=== PATIENT | female | born 1955 | race Caucasian/White ===

== ENCOUNTER → 2019-05-02 | Outpatient (CLI) | payer MEDICARE ==
[~2019-05-02] MED LIST: ATOR10TA69 PO; BUPR-47 PO; ESOM40CA PO; ESTR2TAB PO; IPRA4AER IH; LEVO75TA10 PO; RIVA20TA PO; ROPI1TAB11 PO; VIT B12 PO; VIT D2 PO
== END | disposition home or self-care (01) ==
LOC: RAH 15:14
PROVIDERS: ATTEND Orthopaedic Surgery
DX: M47.22 Other spondylosis with radiculopathy, cervical region (principal); M48.02 Spinal stenosis, cervical region
CPT/HCPCS: 72141

== ENCOUNTER 2023-01-07 09:00 | Inpatient (IN) | payer MEDICARE ==
[~2023-01-07] VITALS: Ht 162.6 cm; Wt 78.7 kg
[~2023-01-07 09:00] MED LIST changes: -BUPR-47 PO; -ESOM40CA PO; -ESTR2TAB PO; +ESTR2TAB25 PO; -IPRA4AER IH; -RIVA20TA PO; -ROPI1TAB11 PO; -VIT B12 PO; -VIT D2 PO
[2023-01-07 10:09] VITALS: BP 119/63
[2023-01-07 10:27] LABS: BASOPHILS % (AUTO) 0.5 % (0.0-5.0); HEMATOCRIT 35.3 % (36-48); LYMPHOCYTES % (AUTO) 19.6 % (21.0-51.0); MEAN CORPUSCULAR HEMOGLOBIN 26.1 pg (27.0-33.0); MEAN CORPUSCULAR HGB CONC 30.6 g/dL (32.0-36.0); MEAN CORPUSCULAR VOLUME 85.3 fL (79-99); NEUTROPHILS % (AUTO) 70.7 % (40.0-77.0); PLATELET COUNT (AUTO) 270 K/uL (130-400); RED BLOOD CELL COUNT(AUTO) 4.14 MIL/uL (4.00-5.50); RED CELL DISTRIBUTION WIDTH 16.7 % (11.0-15.5); WHITE BLOOD COUNT (AUTO) 6.1 K/uL (4.8-10.8)
[2023-01-07 10:39] LABS: INR 0.96 (0.85-1.15); PROTHROMBIN TIME 10.5 SEC (9.6-11.6)
[2023-01-07 10:40] LABS: POTASSIUM 4.4 mmol/L (3.5-5.1)
[2023-01-07 10:41] LABS: PARTIAL THROMBOPLASTIN TIME 29.9 SEC (26.3-35.5)
[2023-01-07] MEDS ORDERED: VITAMIN B12 PO (11:23)
[2023-01-07] MEDS ORDERED: VITAMIN D3 PO (11:23)
[2023-01-07] MEDS ORDERED: OMEP20TA20 PO (11:23)
[2023-01-07] MEDS ORDERED: FLUO20TA29 PO (11:23)
[2023-01-07] MEDS ORDERED: APIX5TAB PO (11:23)
[2023-01-07] MEDS ORDERED: ROPI2TAB7 PO (11:23)
[2023-01-12 15:38] VITALS: BP 134/66
[2023-01-13] VITALS (25 sets, daily range): BP systolic 97–130; BP diastolic 48–98
[2023-01-13] MEDS ORDERED: CEFAZOLIN SODIUM 2 GM VIAL ONE (06:55)
[2023-01-13] MEDS ORDERED: LACTATED RINGERS 1000ML 1,000 ML IV ONE (06:55)
[2023-01-13] MEDS ORDERED: ROPIVACAINE 0.5% 5MG/ML 30ML IJ ONE (08:34)
[2023-01-13] MEDS ORDERED: TRANEXAMIC ACID 1000MG/10ML ONE (10:06)
[2023-01-13] MEDS ORDERED: LIDOCAINE PF 100MG/5ML (2%) SYRINGE 5ML ONE (10:26)
[2023-01-13] MEDS ORDERED: ROCURONIUM 10MG/1ML SYR 10 MG/ML ML ONE (10:27)
[2023-01-13] MEDS ORDERED: GLYCOPYRROLATE 1 MG/5 ML SYRINGE ONE (10:27)
[2023-01-13] MEDS ORDERED: FENTANYL CITRATE PF 50 MCG/1 ML 2ML VIAL ONE (10:27)
[2023-01-13] MEDS ORDERED: PROPOFOL 10 MG/ML 20ML VIAL IV ONE (10:27)
[2023-01-13] MEDS ORDERED: MIDAZOLAM HCL 1 MG/ML 2ML VIAL ONE (10:27)
[2023-01-13] MEDS ORDERED: CEFAZOLIN SODIUM 2 GM VIAL IVPB ONE (11:29)
[2023-01-13] MEDS ORDERED: HYDROCODONE/ACETAMINOPHEN 10/325 MG TAB PO PRN (11:30)
[2023-01-13] MEDS ORDERED: KCL 20 MEQ ERTAB PO PRN (11:30)
[2023-01-13] MEDS ORDERED: LIDOCAINE HCL-MPF 1% 2ML VIAL IV PRN (11:30)
[2023-01-13] MEDS: 0.9%NACL 1000ML 1,000 ML IV SCH ×2 (11:30→21:30)
[2023-01-13] MEDS ORDERED: POTASSIUM CHLORIDE 20MEQ/100ML 100 ML IV PRN (11:30)
[2023-01-13] MEDS ORDERED: POTASSIUM CHLORIDE 10% ELIXIR 20 MEQ/15 ML UDCUP PO PRN (11:30)
[2023-01-13] MEDS ORDERED: FE FUMARATE/FA/MV, MIN COMB#15 1 TAB PO PRN (11:30)
[2023-01-13] MEDS ORDERED: ONDANSETRON 4MG INJ IVP PRN (11:30)
[2023-01-13] MEDS ORDERED: TRANEXAMIC ACID 1000MG/10ML IV ONE (12:07)
[2023-01-13] MEDS ORDERED: ONDANSETRON 4MG INJ ONE (12:17)
[2023-01-13] MEDS ORDERED: EPHEDRINE SULFATE 50 MG/ML AMPULE ONE (12:46)
[2023-01-13] MEDS: ROPINIROLE HCL 1 MG TABLET PO SCH ×2 (14:00→20:36)
[2023-01-13] MEDS ORDERED: SUGAMMADEX SODIUM 200 MG/2 ML VIAL IV ONE (14:29)
[2023-01-13] MEDS: CEFAZOLIN SODIUM 1 GM VIAL IVPB SCH ×2 (16:30→23:49)
[2023-01-13] MEDS: ACETAMINOPHEN 1,000 MG/100 ML VIAL IV SCH ×3 (16:56→23:30)
[2023-01-13] MEDS: ASPIRIN 81 MG EC TAB PO SCH ×2 (20:36→20:39)
[2023-01-13] MEDS: HYDROCODONE/ACETAMINOPHEN 5/325 MG TAB PO PRN (20:41)
[2023-01-13] MEDS ORDERED: ESTRADIOL 0.5 MG TABLET PO SCH (21:00)
[2023-01-13] MEDS ORDERED: FLUOXETINE HCL 20 MG CAPSULE PO SCH (21:00)
[2023-01-14] MEDS: MORPHINE 4 MG SYG IVP PRN ×3 (00:43→11:53)
[2023-01-14 04:33] VITALS: BP 118/70
[2023-01-14 04:37] LABS: HEMATOCRIT 31.7 % (36-48); MEAN CORPUSCULAR HEMOGLOBIN 25.9 pg (27.0-33.0); MEAN CORPUSCULAR HGB CONC 30.9 g/dL (32.0-36.0); MEAN CORPUSCULAR VOLUME 83.6 fL (79-99); RED BLOOD CELL COUNT(AUTO) 3.79 MIL/uL (4.00-5.50); RED CELL DISTRIBUTION WIDTH 17.5 % (11.0-15.5); WHITE BLOOD COUNT (AUTO) 5.2 K/uL (4.8-10.8)
[2023-01-14 05:07] LABS: CREATININE 0.9 mg/dL (0.5-1.5); POTASSIUM 3.9 mmol/L (3.5-5.1)
[2023-01-14] MEDS: 0.9%NACL 1000ML 1,000 ML IV SCH (07:30)
[2023-01-14 08:00] VITALS: BP 106/74
[2023-01-14] MEDS ORDERED: POLYETHYLENE GLYCOL 3350 17 GM POWD.PACK PO SCH (09:00)
[2023-01-14] MEDS ORDERED: PANTOPRAZOLE 40 MG TAB DR PO SCH (09:00)
[2023-01-14] MEDS ORDERED: LEVOTHYROXINE 75 MCG TABLET PO SCH (09:00)
[2023-01-14] MEDS: ASPIRIN 81 MG EC TAB PO SCH (09:28)
[2023-01-14] MEDS: ROPINIROLE HCL 1 MG TABLET PO SCH ×2 (09:28→15:08)
[2023-01-14 12:00] VITALS: BP 119/72
[2023-01-14 16:00] VITALS: BP 106/64
[2023-01-14] MEDS: HYDROCODONE/ACETAMINOPHEN 5/325 MG TAB PO PRN (17:55)
[2023-01-16] MEDS ORDERED: BISACODYL 10 MG SUPP.RECT RC PRN (11:30)
== END 2023-01-14 18:35 | disposition home or self-care (01) | DRG 483 ==
LOC: DAHIP 01-13 06:46 → 4AH 01-13 16:20
PROVIDERS: ADMIT Orthopaedic Surgery; ATTEND Orthopaedic Surgery
PROC: 0RRK0JZ Replacement of Left Shoulder Joint with Synthetic Substitute, Open Approach (ICD-10-PCS; 2023-01-13)
PROC: 0RPK08Z Removal of Spacer from Left Shoulder Joint, Open Approach (ICD-10-PCS; principal; 2023-01-13 10:45)
DX: T84.59XA Infection and inflammatory reaction due to other internal joint prosthesis, initial encounter (principal); X58.XXXA Exposure to other specified factors, initial encounter; Z20.822 Contact with and (suspected) exposure to COVID-19
CPT/HCPCS: 36415; 73030; 80048; 85025; 85027; 85610; 85730; 87070; 87076; 87101; 87206; 87426; 97039; G0378; J0690; J2001; J2250; J2270; J2405; J2704; J2795; J3010; J3490; J7120

== ENCOUNTER 2023-06-16 08:30 | Inpatient (IN) | payer OTHER ==
[2023-06-16] VITALS (29 sets, daily range): BP systolic 98–149; BP diastolic 43–88; PULSE 76–99; RESP 11–59; O2SAT 100
[~2023-06-16] VITALS: Ht 167.6 cm; Wt 65.5 kg
[~2023-06-16 08:30] MED LIST changes: +APIX5TAB PO; +FLUO20TA29 PO; +OMEP20TA20 PO; +ROPI2TAB53 PO; +VITAMIN B12 PO; +VITAMIN D3 PO
[2023-06-16 09:38] LABS: BASOPHILS % (AUTO) 0.4 % (0.0-5.0); EOSINOPHILS % (AUTO) 3.5 % (0.0-8.0); HEMATOCRIT 29.5 % (36-48); LYMPHOCYTES % (AUTO) 23.2 % (21.0-51.0); MEAN CORPUSCULAR HEMOGLOBIN 26.9 pg (27.0-33.0); MEAN CORPUSCULAR HGB CONC 31.2 g/dL (32.0-36.0); MEAN CORPUSCULAR VOLUME 86.3 fL (79-99); NEUTROPHILS % (AUTO) 61.5 % (40.0-77.0); PLATELET COUNT (AUTO) 349 K/uL (130-400); RED BLOOD CELL COUNT(AUTO) 3.42 MIL/uL (4.00-5.50); RED CELL DISTRIBUTION WIDTH 16.7 % (11.0-15.5); WHITE BLOOD COUNT (AUTO) 4.5 K/uL (4.8-10.8)
[2023-06-16] MEDS ORDERED: GABA-529 PO (09:41)
[2023-06-16] MEDS ORDERED: LACTATED RINGERS 1000ML 1,000 ML IV ONE (09:42)
[2023-06-16] MEDS ORDERED: CEFAZOLIN SODIUM 2 GM VIAL ONE (09:42)
[2023-06-16 09:44] LABS: CREATININE 0.9 mg/dL (0.5-1.5); POTASSIUM 4.4 mmol/L (3.5-5.1)
[2023-06-16] MEDS ORDERED: ERTA1VIA3 IV (09:53)
[2023-06-16] MEDS ORDERED: PROPOFOL 10 MG/ML 20ML VIAL IV ONE (10:55)
[2023-06-16] MEDS ORDERED: LIDOCAINE PF 100MG/5ML (2%) SYRINGE 5ML ONE (10:55)
[2023-06-16] MEDS ORDERED: FENTANYL CITRATE PF 50 MCG/1 ML 2ML VIAL ONE (10:56)
[2023-06-16] MEDS ORDERED: ROCURONIUM 10MG/1ML SYR 10 MG/ML ML ONE (10:56)
[2023-06-16] MEDS ORDERED: MIDAZOLAM HCL 1 MG/ML 2ML VIAL ONE (10:56)
[2023-06-16] MEDS ORDERED: EPHEDRINE SULFATE 50 MG/ML AMPULE ONE (11:38)
[2023-06-16] MEDS ORDERED: PHENYLEPHRINE HCL 10 MG/ML 1ML VIAL IV ONE (11:51)
[2023-06-16] MEDS ORDERED: ONDANSETRON 4MG INJ IVP PRN (14:00)
[2023-06-16] MEDS ORDERED: HYDROCODONE/ACETAMINOPHEN 10/325 MG TAB PO PRN (14:00)
[2023-06-16] MEDS ORDERED: POTASSIUM CHLORIDE 10% ELIXIR 20 MEQ/15 ML UDCUP PO PRN (14:00)
[2023-06-16] MEDS ORDERED: KCL 20 MEQ ERTAB PO PRN (14:00)
[2023-06-16] MEDS ORDERED: NON-FORMULARY MEDICATION 1 EACH (Ropinirole HCl 2 MG) PO SCH (14:00)
[2023-06-16] MEDS ORDERED: POTASSIUM CHLORIDE 20MEQ/100ML 100 ML IV PRN (14:00)
[2023-06-16] MEDS ORDERED: HYDROCODONE/ACETAMINOPHEN 5/325 MG TAB PO PRN (14:00)
[2023-06-16] MEDS ORDERED: MEPERIDINE-PF 25 MG/ML SYG ONE (14:54)
[2023-06-16] MEDS: ACETAMINOPHEN 1,000 MG/100 ML VIAL IV SCH ×2 (15:04→20:39)
[2023-06-16] MEDS: IBUPROFEN 800MG + NS 250ML IV SCH (20:09)
[2023-06-16] MEDS: OMEPRAZOLE 20 MG PO SCH (21:00)
[2023-06-16] MEDS ORDERED: ESTRADIOL 2 MG PO SCH (21:00)
[2023-06-16] MEDS ORDERED: ERTAPENEM SODIUM 1 GM IV SCH (21:00)
[2023-06-16] MEDS ORDERED: FLUOXETINE HCL 20 MG PO SCH (21:00)
[2023-06-16] MEDS: FLUOXETINE HCL 20 MG CAPSULE PO SCH (23:16)
[2023-06-16] MEDS: ROPINIROLE HCL 1 MG TABLET PO SCH ×2 (23:17→23:20)
[2023-06-16] MEDS: ATORVASTATIN 10 MG TABLET PO SCH (23:17)
[2023-06-16] MEDS: GABAPENTIN 100 MG CAPSULE PO SCH (23:18)
[2023-06-17] VITALS (8 sets, daily range): BP systolic 107–130; BP diastolic 57–62; PULSE 70–85; RESP 16–18; O2SAT 100
[2023-06-17] MEDS: 0.9%NACL 1000ML 1,000 ML IV SCH ×2 (00:06→10:00)
[2023-06-17] MEDS: IBUPROFEN 800MG + NS 250ML IV SCH ×2 (00:49→09:00)
[2023-06-17] MEDS: MEROPENEM 1 GM in 0.9%NACL 100ML IVPB SCH ×4 (01:07→23:56)
[2023-06-17] MEDS: MORPHINE 4 MG SYG IVP PRN ×2 (02:30→20:08)
[2023-06-17] MEDS: ACETAMINOPHEN 1,000 MG/100 ML VIAL IV SCH (04:55)
[2023-06-17 06:03] LABS: CREATININE 0.9 mg/dL (0.5-1.5); POTASSIUM 3.7 mmol/L (3.5-5.1)
[2023-06-17 06:34] LABS: HEMATOCRIT 22.2 % (36-48); MEAN CORPUSCULAR HEMOGLOBIN 26.7 pg (27.0-33.0); MEAN CORPUSCULAR HGB CONC 31.1 g/dL (32.0-36.0); RED BLOOD CELL COUNT(AUTO) 2.58 MIL/uL (4.00-5.50); RED CELL DISTRIBUTION WIDTH 16.6 % (11.0-15.5); WHITE BLOOD COUNT (AUTO) 3.5 K/uL (4.8-10.8)
[2023-06-17] MEDS: LEVOTHYROXINE 75 MCG TABLET PO SCH (07:05)
[2023-06-17 08:22] LABS: HEMATOCRIT 23.4 % (36-48)
[2023-06-17] MEDS ORDERED: COMPOUND IV MISC 1 EACH IVSOLN MISC PRN (08:30)
[2023-06-17] MEDS ORDERED: MEROPENEM 1 GM VIAL IVPB SCH (09:00)
[2023-06-17] MEDS: OMEPRAZOLE 20 MG PO SCH ×2 (09:00→19:44)
[2023-06-17] MEDS: GABAPENTIN 100 MG CAPSULE PO SCH ×2 (09:00→21:07)
[2023-06-17] MEDS: APIXABAN 2.5 MG TABLET PO SCH ×2 (10:51→20:02)
[2023-06-17] MEDS: ROPINIROLE HCL 1 MG TABLET PO SCH ×2 (10:51→21:07)
[2023-06-17] MEDS: POLYETHYLENE GLYCOL 3350 17 GM POWD.PACK PO SCH (10:52)
[2023-06-17] MEDS: FLUOXETINE HCL 20 MG CAPSULE PO SCH (20:02)
[2023-06-17] MEDS: ATORVASTATIN 10 MG TABLET PO SCH (20:02)
[2023-06-17] MEDS: ESTRADIOL 0.5 MG TABLET PO SCH ×2 (20:02→20:04)
[2023-06-17 20:05] LABS: HEMATOCRIT 27.6 % (36-48)
[2023-06-18 04:07] VITALS: BP 106/64; PULSE 81; RESP 17
[2023-06-18] MEDS: ROPINIROLE HCL 1 MG TABLET PO SCH ×2 (05:57→14:38)
[2023-06-18] MEDS: GABAPENTIN 100 MG CAPSULE PO SCH ×2 (05:57→14:38)
[2023-06-18] MEDS: LEVOTHYROXINE 75 MCG TABLET PO SCH (05:57)
[2023-06-18] MEDS: POLYETHYLENE GLYCOL 3350 17 GM POWD.PACK PO SCH (07:28)
[2023-06-18] MEDS: OMEPRAZOLE 20 MG PO SCH (07:28)
[2023-06-18] MEDS: APIXABAN 2.5 MG TABLET PO SCH (07:42)
[2023-06-18] MEDS: MEROPENEM 1 GM in 0.9%NACL 100ML IVPB SCH (07:42)
[2023-06-18 08:00] VITALS: BP 142/65; PULSE 81; RESP 16; O2SAT 100
[2023-06-18 11:10] VITALS: BP 119/61; PULSE 68; RESP 17
[2023-06-18 16:00] VITALS: BP 118/61; PULSE 84; RESP 18
[2023-06-19] MEDS ORDERED: BISACODYL 10 MG SUPP.RECT RC PRN (14:00)
== END 2023-06-18 17:00 | disposition home or self-care (01) | DRG 483 ==
LOC: DAHIP 08:30 → EDSTATUS 14:00 → 4CH 20:35
PROVIDERS: ADMIT Orthopaedic Surgery; ATTEND Orthopaedic Surgery
PROC: 0RPJ0JZ Removal of Synthetic Substitute from Right Shoulder Joint, Open Approach (ICD-10-PCS; 2023-06-16)
PROC: 30233N1 Transfusion of Nonautologous Red Blood Cells into Peripheral Vein, Percutaneous Approach (ICD-10-PCS; 2023-06-16)
PROC: 0RRJ0JZ Replacement of Right Shoulder Joint with Synthetic Substitute, Open Approach (ICD-10-PCS; principal; 2023-06-16 12:14)
DX: T84.59XA Infection and inflammatory reaction due to other internal joint prosthesis, initial encounter (principal); Z20.822 Contact with and (suspected) exposure to COVID-19; Y83.8 Other surgical procedures as the cause of abnormal reaction of the patient, or of later complication, without mention of misadventure at the time of the procedure; Y92.89 Other specified places as the place of occurrence of the external cause; D64.9 Anemia, unspecified
CPT/HCPCS: 36415; 36430; 73030; 80048; 85014; 85018; 85025; 85027; 86850; 86900; 86901; 86923; 87070; 87076; 87426; 97039; G0378; J1741; J2001; J2175; J2185; J2250; J2270; J2371; J2405; J2704; J3010; J3490; J7120; P9016; A4215; A4221; A4222; A4223; A4600; A4663; A6260; J0690

== ENCOUNTER → 2024-03-11 | Outpatient (CLI) | payer OTHER ==
[~2024-03-11] MED LIST changes: +ERTA1VIA3 IV; +GABA-529 PO; -VITAMIN B12 PO; -VITAMIN D3 PO
== END | disposition home or self-care (01) ==
LOC: RAH 10:15
PROVIDERS: ATTEND Orthopaedic Surgery
DX: M19.012 Primary osteoarthritis, left shoulder (principal); M25.512 Pain in left shoulder
CPT/HCPCS: 73200